=== PATIENT | female | born 1985 | race Two or more races ===

== ENCOUNTER 2022-01-30 20:08 | Emergency (ER) | payer OTHER ==
[2022-01-30 20:18] VITALS: BP 103/63; PULSE 76; RESP 18; TEMP 97.8; BMI 16.9
[2022-01-30 23:44] LABS: THROAT:GRP A STREP NOT DETECTED (NOTDETECTED)
== END 2022-01-30 22:23 | disposition home or self-care (01) ==
LOC: JER 20:08
DX: B34.9 Viral infection, unspecified (principal)
CPT/HCPCS: 0241U-QW; 87651; 99283-25

== ENCOUNTER 2022-03-26 04:05 | Day surgery (SDC) | payer OTHER ==
[2022-03-24 14:32] VITALS: BMI 22.9
[2022-03-26] MEDS ORDERED: FENTANYL CITRATE/PF 50 MCG/ML VIAL ONE (07:34)
[2022-03-26] MEDS ORDERED: MIDAZOLAM HCL 2 MG/2 ML SINGLE DOSE VIAL ONE (07:34)
[2022-03-26] MEDS ORDERED: PROPOFOL 20 ML ONE (07:34)
[2022-03-26] MEDS ORDERED: LIDOCAINE HCL/PF 2% SDV 5ML VIAL ONE (07:35)
[2022-03-26] MEDS ORDERED: DEXAMETHASONE SOD PHOSPHATE 4 MG/1 ML VIAL ONE (07:35)
[2022-03-26] MEDS ORDERED: ONDANSETRON 4 MG/2 ML VIAL ONE (07:35)
[2022-03-26] MEDS ORDERED: ceFAZolin SODIUM 1 GM VIAL IVPB ONE (08:22)
[2022-03-26] MEDS ORDERED: ceFAZolin SODIUM 1 GM VIAL ONE (08:23)
[2022-03-26] MEDS ORDERED: KETOROLAC TROMETHAMINE 30 MG/1 ML VIAL ONE (08:37)
[2022-03-26] MEDS ORDERED: ONDANSETRON 4 MG/2 ML VIAL IVPUSH PRN (08:53)
[2022-03-26] MEDS ORDERED: FENTANYL CITRATE/PF 50 MCG/ML VIAL IVPUSH PRN (08:53)
[2022-03-26] MEDS ORDERED: IBUPROFEN 600 MG TABLET (FP) PO PRN (08:54)
[2022-03-26] MEDS ORDERED: ACETAMINOPHEN 325 MG TABLET (FP) PO PRN (08:54)
[2022-03-26] MEDS ORDERED: LACTATED RINGERS SOLUTION 1,000 ML IV SCH (09:00)
[2022-03-26 15:20] VITALS: BP 94/63; PULSE 62; RESP 15; TEMP 97.5
== END 2022-03-26 11:10 | disposition home or self-care (01) ==
LOC: JASU-SURG 04:05
PROVIDERS: ATTEND Obstetrics & Gynecology
PROC: 0UC98ZZ Extirpation of Matter from Uterus, Via Natural or Artificial Opening Endoscopic (ICD-10-PCS; principal; 2022-03-26 08:00)
PROC: 0UH98HZ Insertion of Contraceptive Device into Uterus, Via Natural or Artificial Opening Endoscopic (ICD-10-PCS; 2022-03-26 08:00)
DX: Z30.433 Encounter for removal and reinsertion of intrauterine contraceptive device (principal)
CPT/HCPCS: 81025; 88300-TC; 94760